=== PATIENT | female | born 1940 | race Caucasian/White ===

== ENCOUNTER 2018-10-18 23:35 | Inpatient (IN) | payer MEDICARE, BC ==
[2018-10-18] MEDS ORDERED: NORVASC5 MG PO (23:42)
[2018-10-18] MEDS ORDERED: CYMBALTA20 MG PO (23:43)
[2018-10-18] MEDS ORDERED: BAYER CHEWABLE81 MG PO (23:43)
[2018-10-18] MEDS ORDERED: LASIX40 MG PO (23:43)
[2018-10-18] MEDS ORDERED: GABAPENTIN100 MG PO (23:43)
[2018-10-18] MEDS ORDERED: COZAAR100 MG PO (23:44)
[2018-10-18] MEDS ORDERED: MIRAPEX0.5 MG PO (23:44)
[2018-10-18] MEDS ORDERED: LEVOXYL50 MCG PO (23:44)
[2018-10-18] MEDS ORDERED: LOPRESSOR25 MG PO (23:44)
[2018-10-18] MEDS ORDERED: OMEPRAZOLE20 M1 PO (23:45)
[2018-10-18] MEDS ORDERED: ZOCOR10 MG PO (23:45)
[2018-10-18] MEDS ORDERED: K-DUR20 MEQ PO (23:45)
[2018-10-19 02:54] VITALS: BP 167/63; BMI 32.0
[2018-10-19 04:00] VITALS: BP 138/62
--- NOTE | 2018-10-19 08:17 | NUR ---
PT RESTING IN BED. DENIES ANY NEEDS. NO OUTPUT FROM NG NOTED. DAUGHTERS AT BEDSIDE. NO S/S OF ACUTE DISTRESS. CL IN PLACE.
[2018-10-19 09:01] VITALS: BP 134/36
--- NOTE | 2018-10-19 12:23 | MORECARE ---
CASE MANAGEMENT DISCHARGE SUMMARY PATIENT: TONY RICHEY UNIT: [id number] ADM DATE: 10/19/18 AGE: 78 : 42 SEX: F ROOM/BED: D.2233 AUTHOR: CARLOS DOMINGUEZ PHYSICIAN: REFERRING PHYSICIAN: JHOANA BRISCOE MD DATE OF SERVICE: 10/19/18 Discharge Plan Patient Name: TONY RICHEY Facility: [facility]:[place] : 1940 Planned Disposition: Home Hlth Svc w Plan Readm Anticipated Discharge Date: Discharge Date: Expected LOS: Initial Reviewer: [email or web address] Initial Review Date: 10/19/2018 Generated: 10/19/18 1:22 pm Comments DCP- Discharge Planning Updated by [email or web address]: Jadyn Jiménez on 10/19/18 11:[address] Patient Name: TONY RICHEY Admission Status: ER Accout number: [id number] Admission Date: 10-19-2018 : 1940 Admission Diagnosis: Attending: JHOANA BRISCOE Current LOS: 1 Anticipated DC Date: Planned Disposition: Home Hlth Svc w Plan Readm Primary Insurance: MEDICARE A & B Discharge Planning Comments: CM met with patient to complete initial dc planning assessment. CM educated patient on the CM role and verbal consent given by patient to complete assessment. Patient lives at home with her daughter (Jorge) and her family. At discharge patient plans to return and feels this is a safe discharge. CM discussed availability of home health, rehab services, and medical equipment. States she is current with [facility], they are giving her PT for her knees. 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 States she would like them resumed on discharge. I called [facility] and informed them of her admission and they will resume care on discharge. CM will continue to follow and will assist as needed with dc plans/needs. Jony - Approver: Jadyn Jiménez DCPIA - Discharge Planning Initial Assessment Updated by [id number]: Jadyn Jiménez on 10/19/18 12:16 pm * Is the patient Alert and Oriented? Yes * How many steps to enter\exit or inside your home? 0/0 * PCP Dr. Mary Kate Rodriguez in [facility] * Pharmacy [facility] in [facility] * Preadmission Environment Home with Family * ADLs Independent * Equipment Bedside Commode Cane Shower Chair Walker * List name and contact numbers for known caregivers / representatives who currently or will assist patient after discharge: Jorge Aguilera - DTR - [phone] Starla Richey - [facility] - [phone] * Verbal permission to speak to the caregivers and representatives has been obtained from the patient. Yes * Community resources currently utilized Home Health * Please name any agencies selected above. [facility] * Additional services required to return to the preadmission environment? No * Can the patient safely return to the preadmission environment? Yes * Has this patient been hospitalized within the prior 30 days at any hospital? No Patient Name: TONY RICHEY Page [phone] at 1223 All edits/amendments must be made on the electronic document DICTATION DATE: 10/19/18 122 BOTTLING ROOM WORKER: DANIEL 10/19/18 1222 RPT#: [id number] DC DATE: STATUS: ADM IN [facility] [address] [place] [address] END OF REPORT
[2018-10-19 13:07] VITALS: BP 110/32
[2018-10-19 14:42] VITALS: BMI 31.9
[2018-10-19 17:23] VITALS: BP 159/45
--- NOTE | 2018-10-19 18:50 | NUR ---
PT RESTING IN BED. WRAPPED ARM SO PT CAN USE THE SHOWER. PROPERTY INVESTOR PAUSED. NO S/S OF ACUTE DISTRESS. CL IN PLACE.
--- NOTE | 2018-10-19 18:51 | NUR ---
PT RESTING IN BED. CHEST RISING AND FALLING. NG TO L NARE TO CHARLIE. SISTER AT BEDSIDE. NO S/S OF ACUTE DISTRESS. CL IN PLACE.
[2018-10-19 20:00] VITALS: BP 136/48
--- NOTE | 2018-10-19 23:00 | NUR ---
PT REPORTS MILD PAIN. INFORMED PT OF LOW BP THAT MAY DROP IF SHE RECIEVES PRN PAIN MED. PT VERBALIZED UNDERSTANDING. INFORMED IF PAIN INCREASES TO NOTIFY, BUT IF BP COMES BACK UP BY NEXT VITALS, SHE MAY RECIEVE PRN PAIN MEDICATION.
[2018-10-20] VITALS: BP 153/69
--- NOTE | 2018-10-20 03:23 | NUR ---
I have reviewed this patient and I concur with the Shift Assessment completed by the Licensed Practical Nurse today this shift.
[2018-10-20 04:00] VITALS: BP 164/55
[2018-10-20 07:13] LABS: BASOPHILS 0.1 % (0-2); EOSINOPHILS 0.1 % (0-7); HEMATOCRIT 32.3 % (36.0-48.0); HEMOGLOBIN 9.6 g/dL (12-16); IMMATURE GRANULOCYTES 0.3 % (0-5); MCH 23.5 pg (26.0-34.0); MCHC 29.7 g/dL (31.0-37.0); MEAN PLATELET VOLUME 10.2 fL (7.4-10.4); MONOCYTES 8.9 % (2-11); NEUTROPHILS 78.6 % (40-80); PLATELET COUNT 265 10x3/uL (130-400); RBC 4.09 10x6/uL (4.00-5.40); RDW 16.3 % (11.5-14.5); WBC 7.5 10x3/uL (4.8-10.8)
[2018-10-20 07:32] LABS: ALBUMIN 2.4 g/dL (3.4-5.0); ANION GAP 13.1 mmol/L (8-16); BILIRUBIN - TOTAL 0.41 mg/dL (0.2-1.3); CALCIUM 8.1 mg/dL (8.5-10.1); CARBON DIOXIDE 26.1 mmol/L (21.0-32.0); CREATININE - SERUM 0.9 mg/dL (0.6-1.3); POTASSIUM - SERUM 4.2 mmol/L (3.5-5.1); PROTEIN - SERUM 5.7 g/dL (6.4-8.2)
--- NOTE | 2018-10-20 08:16 | NUR ---
PATIENT RESTING WITH NO DISTRESS, DAUGHTER AT BEDSIDE. NG TO LOW INT SUCTION. CL IN REACH
[2018-10-20 08:42] VITALS: BP 161/45
[2018-10-20 14:31] VITALS: BP 133/115
[2018-10-20 16:46] VITALS: BP 150/42
--- NOTE | 2018-10-20 19:40 | NUR ---
LYING IN BED. ALERT AND ORIENTED X4. DENIES PAIN. NGT NOTED TO RT NARE TO LIS WITH LIGHT YELLOW FLUID IN TUBING. RESP EVEN AND NONLABORED. ABD DISTENDED BUT SOFT. BS PRESENT. SCDS IN USE BILAT. 2+ EDEMA NOTED TO BLE. NS WITH 20 MEQ KCL @ 100 ML/HR INFUSING IN RT HAND WITHOUT DIFF. DENIES NAUSEA. SR ELEVATED X2. CL IN REACH. FAMILY AT BEDSIDE.
[2018-10-20 20:00] VITALS: BP 169/53
--- NOTE | 2018-10-20 23:00 | NUR ---
IV LEAKING IN RT HAND. IV CATH REMOVED. 22G INSERTED IN RT FOREARM AFTER ATTEMPT X2. PT NIKOLAI WELL.
[2018-10-21] VITALS (7 sets, daily range): BP systolic 122–167; BP diastolic 51–82
--- NOTE | 2018-10-21 05:52 | NUR ---
MEDICATED WITH MORPHINE FOR C/O ABD PAIN RATING 4 ON PAIN SCALE. CL IN REACH.
--- NOTE | 2018-10-21 08:42 | NUR ---
PT RESTING IN BED. NG TO LIS BROWN DRAINAGE NOTED IN CANISTER. SISTER AT BEDSIDE. DENIES ANY NEEDS. NO S/S OF ACUTE DISTRESS. CL IN PLACE.
--- NOTE | 2018-10-21 14:52 | NUR ---
PT REPORTS 1 SMALL BM WITH SMALL AMOUTN BRIGHT RED BLOOD NOTED. CO "NG TUBE SLIPPING AND I AM WORRIED IT IS OUT OF PLACE." MIGUELITO ROBLESN REPOSITIONED AND RETAPPED. NO S/S OF ACUTE DISTRESS. CL IN PLACE.
--- NOTE | 2018-10-21 18:24 | NUR ---
PT RESTING IN BED. NG TUBE TO LIS DRAINING DARK BROWN. SISTER AT BEDSIDE. REMOVED SCDS PER PT REQUEST. DENIES PAIN. PASSING GAS. NO S/S OF ACUTE DISTRESS. CL IN PLACE.
--- NOTE | 2018-10-21 19:20 | NUR ---
LYING IN BED. ALERT AND ORIENTED X4. RESP EVEN AND NONLABORED. ABD DISTENDED AND SOFT. BS PRESENT X4 QUADS. PASSING FLATUS. NGT TO RT NARE TO LIS WITH BROWNISH DRAINAGE IN CANISTER. SCDS IN USE. NS WITH 20 MEQ KCL INFUSING AT 100 ML/HR IN RT FOREARM WITHOUT DIFF. 2+ EDEMA NOTED TO BLE. DENIES PAIN. SISTER AT BEDSIDE. SR ELEVATED X2. CL IN REACH.
[2018-10-22] VITALS: BP 138/60
[2018-10-22 04:00] VITALS: BP 164/52
[2018-10-22 06:29] LABS: BASOPHILS 0.1 % (0-2); EOSINOPHILS 0.6 % (0-7); HEMATOCRIT 34.3 % (36.0-48.0); HEMOGLOBIN 10.3 g/dL (12-16); IMMATURE GRANULOCYTES 0.3 % (0-5); LYMPHOCYTES 15.9 % (15-50); MCH 23.9 pg (26.0-34.0); MCV 79.6 fL (80.0-100.0); MEAN PLATELET VOLUME 10.1 fL (7.4-10.4); MONOCYTES 9.6 % (2-11); NEUTROPHILS 73.5 % (40-80); RBC 4.31 10x6/uL (4.00-5.40); RDW 16.3 % (11.5-14.5); WBC 6.7 10x3/uL (4.8-10.8)
[2018-10-22 06:39] LABS: CALC OSMOLALITY 289 mosm/kg (275-300); CALCIUM 8.6 mg/dL (8.5-10.1); CARBON DIOXIDE 22.3 mmol/L (21.0-32.0); CHLORIDE - SERUM 110 mmol/L (98-107); CREATININE - SERUM 0.7 mg/dL (0.6-1.3); POTASSIUM - SERUM 4.2 mmol/L (3.5-5.1); SODIUM 145 mmol/L (136-145); UREA NITROGEN 20 mg/dL (7-18); eGFR NON AFRICAN AMERICAN 86 mL/min (90-120)
[2018-10-22 06:40] LABS: PLATELET COUNT 322 10x3/uL (130-400)
[2018-10-22 06:43] LABS: GLUCOSE 69 mg/dL (74-106)
--- NOTE | 2018-10-22 10:36 | NUR ---
MORNING ASSESSMENT COMPLETE. SEE ASSESSMENET FLOWSHEET FOR FURHTER DETIALS. PT LYING IN BED AAO X4 TO PERSON, PLACE, TIME, AND SITUATION. DENEIS NEEDS AT THSI TIME. CL IN REACH. SIDE RAILS UP X3 FOR PT SAFETY. BED IN LOWEST POSITION.
--- NOTE | 2018-10-22 13:22 | NUR ---
NUTRITION F/U CHART REVIEWED. DIET ADVANCED TO CLEAR LIQUIDS. WILL CONTINUE TO MONITOR DIET ADVANCEMENT, PO INTAKE. RD FOLLOWING
[2018-10-22 14:01] VITALS: BP 135/51
[2018-10-22 18:29] VITALS: BP 169/54
[2018-10-22 20:00] VITALS: BP 168/47
[2018-10-23] VITALS: BP 134/46
[2018-10-23 04:00] VITALS: BP 151/47
--- NOTE | 2018-10-23 04:07 | NUR ---
PT ALERT AND ORIENTED. NO SIGNS OF DIDSTRESS. BREATHING EVEN AND UNLABORED. PT STATES NO PROBLEMS AT THIS TIME. NO N/V ALL NIGHT. AND HEADACHE IS GONE. WILL CONTINUE PLAN OF CARE.
--- NOTE | 2018-10-23 04:08 | NUR ---
I have reviewed this patient and I concur with the Shift Assessment completed by the Licensed Practical Nurse today this shift.
[2018-10-23 05:18] LABS: BASOPHILS 0.2 % (0-2); EOSINOPHILS 0.8 % (0-7); HEMATOCRIT 28.5 % (36.0-48.0); HEMOGLOBIN 8.6 g/dL (12-16); IMMATURE GRANULOCYTES 0.3 % (0-5); LYMPHOCYTES 13.9 % (15-50); MCH 23.9 pg (26.0-34.0); MCHC 30.2 g/dL (31.0-37.0); MCV 79.2 fL (80.0-100.0); MEAN PLATELET VOLUME 9.6 fL (7.4-10.4); MONOCYTES 11.5 % (2-11); NEUTROPHILS 73.3 % (40-80); RDW 16.4 % (11.5-14.5); WBC 6.2 10x3/uL (4.8-10.8)
[2018-10-23 05:33] LABS: CALC OSMOLALITY 291 mosm/kg (275-300); CARBON DIOXIDE 26.1 mmol/L (21.0-32.0); CHLORIDE - SERUM 114 mmol/L (98-107); CREATININE - SERUM 0.7 mg/dL (0.6-1.3); GLUCOSE 89 mg/dL (74-106); POTASSIUM - SERUM 3.9 mmol/L (3.5-5.1); SODIUM 147 mmol/L (136-145); UREA NITROGEN 16 mg/dL (7-18); eGFR NON AFRICAN AMERICAN 86 mL/min (90-120)
[2018-10-23 05:50] LABS: PLATELET COUNT 239 10x3/uL (130-400)
[2018-10-23 08:45] VITALS: BP 159/53
--- NOTE | 2018-10-23 10:15 | NUR ---
PATIENT IN BED WITH NO COMPLAINTS. IV INTACT. NGT REMOVED BY DR. BRISCOE. PATIENT STATED NO PAIN. FAMILY AT BEDSIDE. CALL LIGHT WITHIN REACH.
--- NOTE | 2018-10-23 13:00 | NUR ---
PATIENT IN BED TOLERATED FULL LIQUID DIETS AT THIS TIME. NO COMPLAINTS OF N/V. IV INTACT. FAMILY AT BEDSIDE. CALL LIGHT WITHIN REACH.
[2018-10-23 14:30] VITALS: BP 124/64
--- NOTE | 2018-10-23 15:45 | NUR ---
IVF DC'D PER ORDER. PATIENT HAS NO COMPLAINTS AT THIS TIME. IV INTACT. CALL LIGHT WITHIN REACH.
[2018-10-23 16:47] VITALS: BP 145/55
--- NOTE | 2018-10-23 19:30 | NUR ---
PT SITTING UP IN BEDSIDE CHAIR, WITHOUT DISTRESS. ALERT AND ORIENTED, FAMILY AT BEDSIDE. DENIES PAIN OR N/V. STATES SHE HAS BEEN PASSING GAS. BOWEL SOUNDS ACTIVE X4. DENIES NEEDS AT THIS TIME. CL IN REACH, WILL CTM
[2018-10-23 20:00] VITALS: BP 169/58
--- NOTE | 2018-10-23 21:00 | NUR ---
PT SITTING UP IN BEDSIDE CHAIR, EATING CHEETOS AND SIPPING ON SPRITE. SAYS SHE HAS NOT HAD ANY NAUSEA AND IS TOLERATING BOTH WELL. DENIES NEEDS. CL IN REACH, WILL CTM
[2018-10-24] VITALS: BP 156/62
--- NOTE | 2018-10-24 04:00 | NUR ---
RESTING QUIETLY, WITHOUT NEEDS. WILL CTM
[2018-10-24 06:42] LABS: BASOPHILS 0.2 % (0-2); EOSINOPHILS 2.1 % (0-7); HEMATOCRIT 30.4 % (36.0-48.0); IMMATURE GRANULOCYTES 0.6 % (0-5); LYMPHOCYTES 19.8 % (15-50); MCH 23.4 pg (26.0-34.0); MCHC 29.6 g/dL (31.0-37.0); MCV 79.2 fL (80.0-100.0); MEAN PLATELET VOLUME 9.8 fL (7.4-10.4); MONOCYTES 12.6 % (2-11); NEUTROPHILS 64.7 % (40-80); PLATELET COUNT 257 10x3/uL (130-400); RBC 3.84 10x6/uL (4.00-5.40); RDW 16.3 % (11.5-14.5); WBC 5.2 10x3/uL (4.8-10.8)
[2018-10-24 06:59] LABS: CALC OSMOLALITY 284 mosm/kg (275-300); CHLORIDE - SERUM 108 mmol/L (98-107); CREATININE - SERUM 0.7 mg/dL (0.6-1.3); GLUCOSE 85 mg/dL (74-106); POTASSIUM - SERUM 3.5 mmol/L (3.5-5.1); SODIUM 144 mmol/L (136-145); eGFR NON AFRICAN AMERICAN 86 mL/min (90-120)
[2018-10-24 07:00] LABS: UREA NITROGEN 10 mg/dL (7-18)
--- NOTE | 2018-10-24 08:35 | NUR ---
PT RESTING IN BED. DENIES PAIN. NO S/S OF ACUTE DISTRESS. SISTER AT BEDSIDE. CL IN PLACE.
[2018-10-24 08:39] VITALS: BP 165/53
--- NOTE | 2018-10-24 10:05 | MORECARE ---
CASE MANAGEMENT DISCHARGE SUMMARY PATIENT: TONY RICHEY UNIT: [id number] ADM DATE: 10/19/18 AGE: 78 : 42 SEX: F ROOM/BED: D.2233 AUTHOR: CARLOS DOMINGUEZ PHYSICIAN: REFERRING PHYSICIAN: JHOANA BRISCOE MD DATE OF SERVICE: 10/24/18 Discharge Plan Patient Name: TONY IRCHEY Facility: [facility]:[place] : 1940 Planned Disposition: Home Hlth Svc w Plan Readm Anticipated Discharge Date: Discharge Date: Expected LOS: Initial Reviewer: [email or web address] Initial Review Date: 10/19/2018 Generated: 10/24/18 11:05 am Comments DCP- Discharge Planning Updated by [email or web address]: Jadyn Jiménez on 10/24/18 9:[address] Patient Name: TONY RICHEY Encounter No: [id number] : 1940 Primary Insurance: MEDICARE A & B Anticipated DC Date: Planned Disposition: Home Hlth Svc w Plan Readm External Planned Provider: : DCP follow-up note: Patient and family in agreement with discharge plan. No changes to plan. She is sitting in chair eating a regular diet. Her family is in the room to transport her home. I called [facility] and spoke to Aixa, they will resume her HHS, clinical faxed. Case management will follow and assist as needed. Jadyn Jiménez DCP- Discharge Planning Updated by [email or web address]: Jadyn Jiménez on 10/19/18 11:[address] Patient Name: TONY RICHEY Admission Status: ER Accout number: [id number] Admission Date: 10-19-2018 : 1940 Admission Diagnosis: Attending: JHOANA BRISCOE Current LOS: 1 Anticipated DC Date: Planned Disposition: Home Hlth Svc w Plan Readm Primary Insurance: MEDICARE A & B Discharge Planning Comments: CM met with patient to complete initial dc planning assessment. CM educated patient on the CM role and verbal consent given by patient to complete assessment. Patient lives at home with her daughter (Jorge) and her family. At discharge patient plans to return and feels this is a safe discharge. CM discussed availability of home health, rehab services, and medical equipment. States she is current with [facility], they are giving her PT for her knees. 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 States she would like them resumed on discharge. I called [facility] and informed them of her admission and they will resume care on discharge. CM will continue to follow and will assist as needed with dc plans/needs. Jony - Manager Spanish: Jadyn Jiménez DCPIA - Discharge Planning Initial Assessment Updated by [id number]: Jadyn Jiménez on 10/19/18 12:16 pm * Is the patient Alert and Oriented? Yes * How many steps to enter\exit or inside your home? 0/0 * PCP Dr. Mary Kate Rodriguez in [facility] * Pharmacy [facility] in [facility] * Preadmission Environment Home with Family * ADLs Independent * Equipment Bedside Commode Cane Shower Chair Walker * List name and contact numbers for known caregivers / representatives who currently or will assist patient after discharge: Jorge Aguilera - DTR - [phone] Starla Richey [facility] - [phone] * Verbal permission to speak to the caregivers and representatives has been obtained from the patient. Yes * Community resources currently utilized Home Health * [facility] * Additional services required to return to the preadmission environment? No * Can the patient safely return to the preadmission environment? Yes * Has this patient been hospitalized within the prior 30 days at any hospital? No External Providers [facility] Next Contact Date: Service Request Date: Service Type: Resolution: Reviewer: Comments: Coverage Notice Reviewer: [email or web address] Jiménez Notice Issued Date-Time: 10/24/2018 9:47 Notice Type: IM Discharge Notice Notice Delivered To: Patient Relationship to Patient: Self English Professor Name: Delivery Method: HAND - Hand Delivered Che Days: Prior Verbal Notification: Recipient Understood Notice: Yes Recipient Signature: Yes Med Rec Note Co-signed by Attending: Coverage Notice Comment: IMM explained, signed, given, copy placed in MR Reviewer: [id number] Jiménez Notice Issued Date-Time: 10/19/2018 12:05 Notice Type: Patient Choice Letter Notice Delivered To: Patient Relationship to Patient: English Professor Name: Delivery Method: HAND - Hand Delivered Che Days: Prior Verbal Notification: Recipient Understood Notice: Yes Recipient Signature: Yes Med Rec Note Co-signed by Attending: Coverage Notice Comment: ZULEMA for [facility] Last DP export: 10/19/18 11:23 a Patient Name: TONY RICHEY Page 14703 at 1005 All edits/amendments must be made on the electronic document DICTATION DATE: 10/24/18 1005 CLIENT SUPPORT PROFESSIONAL: DANIEL 10/24/18 1005 RPT#: [id number] DC DATE: STATUS: ADM IN [facility] [address] [place] [address] END OF REPORT
--- NOTE | 2018-10-24 12:16 | NUR ---
DC INSTRUCTIONS AND EDUCATION DONE. DC IV WITH TIP IN TACT. NO S/S OF ACUTE DISTRESS. ALL BELONGINGS TAKEN DOWN BY DAUGHTER. PT TAKEN DOWN TO LOBBY VIA WC. SISTER AT BEDSIDE.
--- NOTE | 2018-10-30 09:44 | MORECARE ---
CASE MANAGEMENT DISCHARGE SUMMARY PATIENT: TONY RICHEY UNIT: [id number] ADM DATE: 10/19/18 AGE: 78 : 42 SEX: F ROOM/BED: D.2233 AUTHOR: CARLOS DOMINGUEZ PHYSICIAN: REFERRING PHYSICIAN: JHOANA BRISCOE MD DATE OF SERVICE: 10/30/18 Discharge Plan Patient Name: TONY RICHEY Facility: [facility]:[place] : 1940 Planned Disposition: Home Hlth Svc w Plan Readm Anticipated Discharge Date: Discharge Date: 10/24/2018 Expected LOS: 0 Initial Reviewer: [email or web address] Initial Review Date: 10/19/2018 Generated: 10/30/18 10:44 am Comments DCP- Discharge Planning Updated by [email or web address]: Jadyn Jiménez on 10/24/18 9:[address] Patient Name: TONY RICHEY Encounter No: [id number] : 1940 Primary Insurance: MEDICARE A & B Anticipated DC Date: Planned Disposition: Home Hlth Svc w Plan Readm External Planned Provider: : DCP follow-up note: Patient and family in agreement with discharge plan. No changes to plan. She is sitting in chair eating a regular diet. Her family is in the room to transport her home. I called [facility] and spoke to Aixa, they will resume her HHS, clinical faxed. Case management will follow and assist as needed. Jadyn Jiménez DCP- Discharge Planning Updated by [email or web address]: Jadyn Jiménez on 10/19/18 11:[address] Patient Name: TONY RICHEY Admission Status: ER Accout number: [id number] Admission Date: 10-19-2018 : 1940 Admission Diagnosis: Attending: JHOANA BRISCOE Current LOS: 1 Anticipated DC Date: Planned Disposition: Home Hlth Svc w Plan Readm Primary Insurance: MEDICARE A & B Discharge Planning Comments: CM met with patient to complete initial dc planning assessment. CM educated patient on the CM role and verbal consent given by patient to complete assessment. Patient lives at home with her daughter (Jorge) and her family. At discharge patient plans to return and feels this is a safe discharge. CM discussed availability of home health, rehab services, and medical equipment. States she is current with [facility], they are giving her PT for her knees. 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 States she would like them resumed on discharge. I called [facility] and informed them of her admission and they will resume care on discharge. CM will continue to follow and will assist as needed with dc plans/needs. [facility] - Floor Finisher: Jadyn Jiménez DCPIA - Discharge Planning Initial Assessment Updated by [email or web address]: Jadyn Jiménez on 10/19/18 12:16 pm * Is the patient Alert and Oriented? Yes * How many steps to enter\exit or inside your home? 0/0 * PCP Dr. Mary Kate Rodriguez in [facility] * Pharmacy [facility] in [facility] * Preadmission Environment Home with Family * ADLs Independent * Equipment Bedside Commode Cane Shower Chair Walker * List name and contact numbers for known caregivers / representatives who currently or will assist patient after discharge: Jorge Aguilera - DTR - [phone] Starla Richey - [facility] - [phone] * Verbal permission to speak to the caregivers and representatives has been obtained from the patient. Yes * Community resources currently utilized Home Health * Please name any agencies selected above. [facility] * Additional services required to return to the preadmission environment? No * Can the patient safely return to the preadmission environment? Yes * Has this patient been hospitalized within the prior 30 days at any hospital? No Coverage Notice Reviewer: [email or web address] Jose Armando Jiménez Notice Issued Date-Time: 10/24/2018 9:47 Notice Type: IM Discharge Notice Notice Delivered To: Patient Relationship to Patient: Self Manager Of Planning Name: Delivery Method: HAND - Hand Delivered Che Days: Prior Verbal Notification: Recipient Understood Notice: Yes Recipient Signature: Yes Med Rec Note Co-signed by Attending: Coverage Notice Comment: IMM explained, signed, given, copy placed in MR Reviewer: [id number] Jose Armando Jiménez Notice Issued Date-Time: 10/19/2018 12:05 Notice Type: Patient Choice Letter Notice Delivered To: Patient Relationship to Patient: Manager Of Planning Name: Delivery Method: HAND - Hand Delivered Che Days: Prior Verbal Notification: Recipient Understood Notice: Yes Recipient Signature: Yes Med Rec Note Co-signed by Attending: Coverage Notice Comment: ZULEMA for [facility] Last DP export: 10/24/18 9:05 am Patient Name: TONY RICHEY Page [phone] at 0944 All edits/amendments must be made on the electronic document DICTATION DATE: 10/30/18943 SECURITY VEHICLE PATROL OFFICER: DANIEL 10/30/18943 RPT#: [id number] DC DATE:10/24/18 STATUS: DIS IN [facility] [address] [place] [address] END OF REPORT
--- NOTE | 2018-11-15 09:03 | DS ---
PATIENT:TONY RICHEY :44 MEDICAL RECORD: [id number] DISCHARGE SUMMARY ADMISSION DATE: 10/19/18 DISCHARGE DATE: 10/24/18 ADMISSION DIAGNOSES: 1. Small-bowel obstruction. 2. Acute hypokalemia. 3. Hypertension. DISCHARGE DIAGNOSES: 1. Small-bowel obstruction. 2. Acute hypokalemia. 3. Hypertension. 4. Paraesophageal hernia. 5. Lower gastrointestinal bleed. CONSULTATIONS: None. REPORT OF HOSPITALIZATION: The patient was admitted to the hospital through the ER with CT findings of a small-bowel obstruction. She had a history of a total abdominal hysterectomy in the past. The patient had an NG tube in place. Her potassium was noted to be low on admission and this was replaced during the patient's workup with CT scan, it was noted that she had a very large hiatal hernia. This appeared to be a large paraesophageal hernia. She had not known about this being present and never had any workup for it. Also, during her hospitalization, she began having dark discoloration to her stool once she began having bowel function. Guaiac came back positive for blood. There was concern this may be evidence of some sort a lower GI bleed, but this resolved very quickly. She never had a colonoscopy before done at any time, we recommended having one done soon after discharge and she stated that she would like to schedule this as an outpatient, closer to her home town. At the day of discharge, she was tolerating a diet. Her NG tube was out. She was having normal bowel function and had no abdominal pain. Her electrolytes have normalized. She was felt to be stable for discharge home. DISCHARGE INSTRUCTIONS: Return to clinic or call with any questions or concerns, fevers, chills, nausea, vomiting, or worsening abdominal pain. ACTIVITY: As tolerated. FOLLOWUP: 1. As needed, but we will arrange an outpatient EGD with esophageal manometry to assess the patient's large paraesophageal hernia. 2. The patient will contact her PCP to arrange colonoscopy JODIE. TRANSINT:[id number] Voice Confirmation ID: [id number] DOCUMENT ID: [id number] DISCHARGE SUMMARY REPORT [id number] KAIDENZARINAJHOANA WALSH MD at 0903 CC: [id number] DICTATION DATE: 11/08/18810 SUPERVISOR BUFFING AND PASTING: 11/08/18 0936 DIS IN 10/24/18 [facility] [address] [place] [address]
== END 2018-10-24 12:53 | disposition home health service (06) | DRG 389 ==
LOC: D.ER 23:35 → D.MS 10-19 00:26
PROVIDERS: Emergency Medicine; ADMIT Surgery; ATTEND Surgery
PROC: 0D9670Z Drainage of Stomach with Drainage Device, Via Natural or Artificial Opening (ICD-10-PCS; principal; 2018-10-19)
DX: K56.609 Unspecified intestinal obstruction, unspecified as to partial versus complete obstruction (principal); K92.2 Gastrointestinal hemorrhage, unspecified; G62.9 Polyneuropathy, unspecified; I11.0 Hypertensive heart disease with heart failure; I50.9 Heart failure, unspecified; E87.6 Hypokalemia; K44.9 Diaphragmatic hernia without obstruction or gangrene

== ENCOUNTER 2018-11-15 07:44 | Day surgery (SDC) | payer MEDICARE, BC ==
[~2018-11-15] VITALS: Ht 177.8 cm; Wt 80.5 kg
--- NOTE | ~2018-11-15 | OP ---
PATIENT NAME: TONY RICHEY MEDICAL RECORD: [id number] :44 LOCATION:D.OPS ADMISSION DATE: SURGEON: EVAN BRISCOE MD DATE OF OPERATION: 11/15/2018 PREOPERATIVE DIAGNOSES: 1. Hiatal hernia. 2. Hypertension. POSTOPERATIVE DIAGNOSES: 1. Hiatal hernia. 2. Hypertension. PROCEDURE: 1. EGD with biopsy. 2. Manometry catheter placement. SURGEON: Evan Briscoe MD REPORT OF PROCEDURE: The Olympus endoscope was advanced through the patient's mouth and esophagus. We passed through the GE junction, which was at 33 cm from the teeth and entered a large hiatal hernia. We could see the diaphragm pinching down the mid portion of the patient's stomach. The hernia defect was approximately 8 cm in length. As we came down through this, we were able to pass through the pylorus into the small bowel. The small bowel appeared to be normal with no signs of any inflammation, ulcerations or masses. We passed the scope back into the stomach through the pylorus and took a biopsy of the antrum and sent this off for permanent specimen. Retroflexed views could show the large hiatal hernia, but no other masses, lesions or ulcerations throughout the stomach. As we pulled the scope back, we see this is more of a paraesophageal hernia as the stomach appeared to be about [facility] up into the chest. The scope was pulled back into the esophagus and the GE junction was inspected and there were no signs of any ulcerations or inflammation. A biopsy was taken at the lower third of the esophagus near the GE junction and sent off for permanent specimen. At this point, the scope was removed. We then placed the manometry catheter down through the right naris and it easily passed down into the esophagus. We then replaced the endoscope and could see that the manometry catheter was passing through the GE junction into the stomach and the hiatal hernia. At this point, the scope was removed and the catheter was left in place. COMPLICATIONS: None. CONDITION: Stable. ANESTHESIA: TIVA. BLOOD LOSS: Minimal. TRANSINT:[id number] Voice Confirmation ID: [id number] DOCUMENT ID: [id number] OPERATIVE REPORT [id number] KVNGTONY DAVIS EVNA BRISCOE MD CC: [id number] DICTATION DATE: 11/15/18 112 CIVIL STRUCTURAL ENGINEER: 11/15/18 1136 [facility] [address] [facility] [place] [address]
[~2018-11-15 07:44] MED LIST: BAYER CHEWABLE81 MG PO; COZAAR100 MG PO; CYMBALTA20 MG PO; GABAPENTIN100 MG PO; K-DUR20 MEQ PO; LASIX40 MG PO; LEVOXYL50 MCG PO; LOPRESSOR25 MG PO; MIRAPEX0.5 MG PO; NORVASC5 MG PO; OMEPRAZOLE20 M1 PO; ZOCOR10 MG PO
[2018-11-15 08:10] LABS: BASOPHILS 0.2 % (0-2); EOSINOPHILS 1.1 % (0-7); HEMATOCRIT 32.5 % (36.0-48.0); HEMOGLOBIN 9.9 g/dL (12-16); IMMATURE GRANULOCYTES 0.2 % (0-5); MCH 23.7 pg (26.0-34.0); MCHC 30.5 g/dL (31.0-37.0); MCV 77.9 fL (80.0-100.0); MEAN PLATELET VOLUME 8.8 fL (7.4-10.4); MONOCYTES 12.7 % (2-11); NEUTROPHILS 61.8 % (40-80); PLATELET COUNT 235 10x3/uL (130-400); RBC 4.17 10x6/uL (4.00-5.40); RDW 15.9 % (11.5-14.5); WBC 4.6 10x3/uL (4.8-10.8)
[2018-11-15 08:15] LABS: ANION GAP 11.5 mmol/L (8-16); CALCIUM 9.2 mg/dL (8.5-10.1); CARBON DIOXIDE 28.4 mmol/L (21.0-32.0); CREATININE - SERUM 0.9 mg/dL (0.6-1.3); POTASSIUM - SERUM 3.9 mmol/L (3.5-5.1)
[2018-11-15 10:11] VITALS: BP 158/52; Ht 177.8 cm; Wt 80.5 kg
--- NOTE | 2018-11-15 12:02 | NUR ---
[id number] ESOPHAGEAL MANOMETRY TEST.
--- NOTE | 2018-11-15 12:40 | NUR ---
DISCHARGE INSTRUCTIONS REVIEWED WITH PATIENT AND FAMILY. RIGHT HAND PIV DC'D WITH TIP INTACT. PATIENT DRESSING IN PERSONAL CLOTHING
--- NOTE | 2018-11-15 12:58 | NUR ---
DISCHARGED HOME VIA WHEELCHAIR TO PRIVATE VEHICLE WITH FAMILY
== END 2018-11-15 12:58 | disposition home or self-care (01) ==
LOC: D.OPS 07:44
PROVIDERS: ATTEND Surgery
DX: K44.9 Diaphragmatic hernia without obstruction or gangrene (principal); I10 Essential (primary) hypertension; Z01.812 Encounter for preprocedural laboratory examination

== ENCOUNTER 2018-12-06 05:48 | Day surgery (SDC) | payer MEDICARE, BC ==
[~2018-12-06] VITALS: Ht 175.3 cm; Wt 95.3 kg
[2018-12-06] VITALS (11 sets, daily range): BP systolic 134–164; BP diastolic 53–65; BMI 31.0
[2018-12-06 06:17] LABS: BASOPHILS 0.2 % (0-2); EOSINOPHILS 0.6 % (0-7); HEMATOCRIT 33.5 % (36.0-48.0); HEMOGLOBIN 10.3 g/dL (12-16); IMMATURE GRANULOCYTES 0.2 % (0-5); LYMPHOCYTES 19.7 % (15-50); MCH 23.8 pg (26.0-34.0); MCHC 30.7 g/dL (31.0-37.0); MCV 77.4 fL (80.0-100.0); MONOCYTES 11.3 % (2-11); RBC 4.33 10x6/uL (4.00-5.40); RDW 15.7 % (11.5-14.5); WBC 5.3 10x3/uL (4.8-10.8)
[2018-12-06 06:36] LABS: PLATELET COUNT 285 10x3/uL (130-400)
[2018-12-06 06:42] LABS: ANION GAP 13.2 mmol/L (8-16); CALCIUM 9.1 mg/dL (8.5-10.1); CREATININE - SERUM 0.8 mg/dL (0.6-1.3); POTASSIUM - SERUM 4.2 mmol/L (3.5-5.1)
--- NOTE | 2018-12-06 10:54 | NUR ---
ATTEMPTED TO CALL WAITING ROOM TO REACH PTS FAMILY. UNABLE. WILL CHECK [address].
--- NOTE | 2018-12-06 11:08 | NUR ---
PT TRANSPORTED TO ROOM FROM RECOVERY VIA STRETCHER. PT IS AAO X 4. PT REPORTS PAIN TO LEFT NECK/SHOULDER AREA. WILL ADDRESS SEE EMAR. PT IS UNABLE TO ANSWER HISTORICAL/SUICIDAL QUESTIONS AT THIS TIME DUE TO PAIN/FREQUEST EPISODES OF RESTING. PT IS AROUSABLE WITH VERBAL STIMULATION. WILL ATTEMPT TO COMPLETE HISTORY AND SUICIDE SCREEN AT A LATER TIME. LAP SITES X 6 TO ABDOMEN NOTED WITH BANDAIDS C/D/I. PT DENIES PRESENCE OF N/V AT THIS TIME. BED IS IN THE LOWEST POSITION. CALL LIGHT AND BEDSIDE TABLE ARE WITHIN REACH. SIDE RAILS X 2. WILL CONT TO MONITOR.
--- NOTE | 2018-12-06 14:47 | NUR ---
PT SISTER IS HISTORIAN AND ANSWERS QUESTIONS APPROPRIATELY. PT IS AROUSEABLE WITH VERBAL STIMULATION BUT FREQUENTLY RETURNS TO RESTING STATE WITH VERBAL AROUSAL NEEDED. UNABLE TO COMPLETE SUICIDE ASSESSMENT AT THIS TIME. WILL CONT TO ATTEMPT TO COMPLETE.
--- NOTE | 2018-12-06 19:30 | NUR ---
PT RESTING WITH EYES CLOSED AND UNLABORED RESPIRATIONS WHEN ENTERING THE ROOM. AROUSES TO NAME CALLED. SISTER AT BEDSIDE. PATIENT STATES SHE HAS PAIN IN THE ABDOMEN AND IN THE LEFT SIDE OF HER NECK AND REQUESTS A WARM PACK WHEN AVAILABLE. PT HAS 5 LAP SITES TO THE ABDOMEN THAT ARE COVERED WITH BANDAIDS WITH SCANT AMOUNT OF DRIED BLOOD. PATIENT HAS RETAIL EVENT COORDINATOR FOR PAIN CONTROL AND USES CORRECTLY AND EFFECTIVELY. PATENT IV TO THE RIGHT WRIST AND INFUSING NS @ 125. GETS UP TO THE BATHROOM WITH ASSISTANCE OF STAFF. HAS CALL LIGHT IN REACH OF BOTH PATIENT AND SISTER AND VERBALIZE UNDERSTANDING TO USE WHEN IN NEED. REVEIWED NPO STATUS WITH PATIENT AND SISTER. BOTH VERBALIZE UNDERSTANDING. BED LOCKED AND LOWERED. DENIES FURTHER NEEDS AT THIS TIME. CPOC.
[2018-12-07] VITALS: BP 166/60
--- NOTE | 2018-12-07 03:28 | NUR ---
I have reviewed this patient and I concur with the Shift Assessment completed by the Licensed Practical Nurse today this shift.
[2018-12-07 04:00] VITALS: BP 154/57
[2018-12-07 04:22] LABS: BASOPHILS 0.3 % (0-2); EOSINOPHILS 0.3 % (0-7); HEMATOCRIT 29.6 % (36.0-48.0); HEMOGLOBIN 8.9 g/dL (12-16); IMMATURE GRANULOCYTES 0.3 % (0-5); LYMPHOCYTES 22.9 % (15-50); MCH 23.6 pg (26.0-34.0); MCHC 30.1 g/dL (31.0-37.0); MCV 78.5 fL (80.0-100.0); MEAN PLATELET VOLUME 9.2 fL (7.4-10.4); MONOCYTES 12.5 % (2-11); NEUTROPHILS 63.7 % (40-80); PLATELET COUNT 260 10x3/uL (130-400); RBC 3.77 10x6/uL (4.00-5.40); RDW 15.7 % (11.5-14.5)
[2018-12-07 04:24] LABS: WBC 3.9 10x3/uL (4.8-10.8)
[2018-12-07 04:38] LABS: ANION GAP 11.3 mmol/L (8-16); CALCIUM 8.1 mg/dL (8.5-10.1); CARBON DIOXIDE 26.8 mmol/L (21.0-32.0); CREATININE - SERUM 0.8 mg/dL (0.6-1.3); POTASSIUM - SERUM 4.1 mmol/L (3.5-5.1)
--- NOTE | 2018-12-07 07:51 | NUR ---
REPORT RECEIEVED. WILL CONTINUE WITH POC. PT CURRENTLY LYING SEMI FOWLERS. CALL LIGHT W/I REACH. PT IS AAO AND UP WITH ASSIST. RR EVEN AND UNLABORED ON 2L . NS INFUSING @125ML/HR AND DILUADID SOFTWARE APPLICATION TESTER SET TO 0.2/02/22 VIA R.WRIST PIV. PT DENIES ANY NEEDS AT THIS TIME. NO S/S OF DISTRESS NOTED. WILL CTM.
[2018-12-07 08:20] VITALS: BP 156/54
--- NOTE | 2018-12-07 10:00 | NUR ---
HOSPITAL ACCOUNT MANAGER AND NS DC. HOSPITAL ACCOUNT MANAGER DILUADID WASTED. AM MEDICATIONS ADMINISTERED. PT DENIES ANY NEEDS OR PAIN AT THIS TIME. FAMILY AT BEDSIDE. WILL CTM.
[2018-12-07 12:25] VITALS: BP 172/66
--- NOTE | 2018-12-07 13:10 | NUR ---
I have reviewed this patient and I concur with the Shift Assessment completed by the Licensed Practical Nurse today this shift.
[2018-12-07 13:19] VITALS: Ht 175.3 cm; Wt 95.3 kg
[2018-12-07] MEDS ORDERED: REGLAN10 MG PO (14:27)
[2018-12-07] MEDS ORDERED: HYDROCODON-ACE1 EA10 PO (14:27)
--- NOTE | 2018-12-07 14:28 | MORECARE ---
CASE MANAGEMENT DISCHARGE SUMMARY PATIENT: TONY RICHEY UNIT: [id number] ADM DATE: 12/06/18 AGE: 78 : 42 SEX: F ROOM/BED: D.2222 AUTHOR: CARLOS DOMINGUEZ PHYSICIAN: REFERRING PHYSICIAN: JHOANA BRISCOE MD DATE OF SERVICE: 12/07/18 Discharge Plan Patient Name: TONY RICHEY Facility: [facility]:[place] : 1940 Planned Disposition: Home Hlth Svc w Plan Readm Anticipated Discharge Date: 12/07/18 Discharge Date: Expected LOS: 1 Initial Reviewer: [email or web address] Initial Review Date: 12/07/2018 Generated: 12/07/18 3:28 pm Coverage Notice Reviewer: [email or web address] - Jadyn Jiménez Notice Issued Date-Time: 12/07/2018 14:14 Notice Type: Medicare Outpatient Observation Notice Notice Delivered To: Patient Relationship to Patient: Self Program Aide Name: Delivery Method: HAND - Hand Delivered Che Days: Prior Verbal Notification: Recipient Understood Notice: Yes Recipient Signature: Yes Med Rec Note Co-signed by Attending: Coverage Notice Comment: PAUL explained, signed, given, copy placed in MR Patient Name: TONY RICHEY Page [id number] at 1428 All edits/amendments must be made on the electronic document DICTATION DATE: 12/07/181427 MAGNET MAKER: DANIEL 12/07/18 1428 RPT#: [id number] DC DATE: STATUS: ADM IN [facility] [address] [place] [address] END OF REPORT
--- NOTE | 2018-12-07 14:38 | MORECARE ---
CASE MANAGEMENT DISCHARGE SUMMARY PATIENT: TONY RICHEY UNIT: [id number] ADM DATE: 12/06/18 AGE: 78 : 42 SEX: F ROOM/BED: D.2222 AUTHOR: CARLOS DOMINGUEZ PHYSICIAN: REFERRING PHYSICIAN: JHOANA BRISCOE MD DATE OF SERVICE: 12/07/18 Discharge Plan Patient Name: TONY RICHEY Facility: [facility]:[place] : 1940 Planned Disposition: Home Hlth Svc w Plan Readm Anticipated Discharge Date: 12/07/18 Discharge Date: Expected LOS: 1 Initial Reviewer: [email or web address] Initial Review Date: 12/07/2018 Generated: 12/07/18 3:37 pm Comments DCP- Discharge Planning Updated by [email or web address]: Jadyn Jiménez on 12/07/18 1:[address] Patient Name: TONY RICHEY Admission Status: Elective Accout number: [id number] Admission Date: 12-06-2018 : 1940 Admission Diagnosis: Attending: JHOANA BRISCOE Current LOS: 1 Anticipated DC Date: 12-07-2018 Planned Disposition: Home Hlth Svc w Plan Readm Primary Insurance: MEDICARE A & B Discharge Planning Comments: CM met with patient to complete initial dc planning assessment. CM educated patient on the CM role and verbal consent given by patient to complete assessment. Patient lives at home with her daughter and daughter's family. At discharge patient plans to return and feels this is a safe discharge. CM discussed availability of home health, rehab services, and medical equipment. Patient denied known discharge needs at this time. CM will continue to follow and will assist as needed with dc plans/needs. Leather Whitener: Jadyn Jiménez DCPIA - Discharge Planning Initial Assessment Updated by [email or web address]: Jadyn Jiménez on 12/07/18 2:29 pm * Is the patient Alert and Oriented? Yes * How many steps to enter\exit or inside your home? 0/0 * PCP Mary Kate Garrido in [facility] * Pharmacy [facility] in [facility] * Preadmission Environment Home with Family * ADLs Independent * Equipment Bedside Commode Cane Shower Chair Walker * List name and contact numbers for known caregivers / representatives who currently or will assist patient after discharge: Jorge Aguilera - DTR - [phone] Starla Richey - sister - [phone] * Verbal permission to speak to the caregivers and representatives has been obtained from the patient. Yes * Community resources currently utilized Home Health * Please name any agencies selected above. [facility] - [phone] * Additional services required to return to the preadmission environment? No * Can the patient safely return to the preadmission environment? Yes * Has this patient been hospitalized within the prior 30 days at any hospital? No Coverage Notice Reviewer: [email or web address] Jose Armando Jiménez Notice Issued Date-Time: 12/07/2018 14:14 Notice Type: Medicare Outpatient Observation Notice Notice Delivered To: Patient Relationship to Patient: Self Palm Gatherer Name: Delivery Method: HAND - Hand Delivered Che Days: Prior Verbal Notification: Recipient Understood Notice: Yes Recipient Signature: Yes Med Rec Note Co-signed by Attending: Coverage Notice Comment: HUMBERTO explained, signed, given, copy placed in MR Last DP export: 12/07/18 1:28 p Patient Name: TONY RICHEY Page [id number] at 1438 All edits/amendments must be made on the electronic document DICTATION DATE: 12/07/181436 AVIONICS ENGINEER: DANIEL 12/07/181436 RPT#: [id number] DC DATE: STATUS: ADM IN [facility] [address] [place] [address] END OF REPORT
--- NOTE | 2018-12-07 15:27 | NUR ---
PT DISCHARGED HOME VIA WHEELCHAIR WITH FAMILY. SCRIPT GIVEN. PT SIGNED PROPER DISCHARGE INSTRUCTION AND REMOVED ALL VALUABLES FROM THE ROOM. PIV REMOVED WITH CATHETER TIP FULLY INTACT.
--- NOTE | 2018-12-10 09:40 | MORECARE ---
CASE MANAGEMENT DISCHARGE SUMMARY PATIENT: TONY RICHEY UNIT: [id number] ADM DATE: 12/06/18 AGE: 78 : 44 SEX: F ROOM/BED: D.2222 AUTHOR: CARLOS DOMINGUEZ PHYSICIAN: REFERRING PHYSICIAN: JHOANA BRISCOE MD DATE OF SERVICE: 12/10/18 Discharge Plan Patient Name: TONY RICHEY Facility: [facility]:[place] : 1940 Planned Disposition: Home Hlth Svc w Plan Readm Anticipated Discharge Date: 12/07/18 Discharge Date: 12/07/2018 Expected LOS: 1 Initial Reviewer: [email or web address] Initial Review Date: 12/07/2018 Generated: 12/10/18 10:40 am Comments DCP- Discharge Planning Updated by [email or web address]: Jadyn Jiménez on 12/07/18 1:[address] Patient Name: TONY RICHEY Admission Status: Elective Accout number: [id number] Admission Date: 12-06-2018 : 1940 Admission Diagnosis: Attending: JHOANA BRISCOE Current LOS: 1 Anticipated DC Date: 12-07-2018 Planned Disposition: Home Hlth Svc w Plan Readm Primary Insurance: MEDICARE A & B Discharge Planning Comments: CM met with patient to complete initial dc planning assessment. CM educated patient on the CM role and verbal consent given by patient to complete assessment. Patient lives at home with her daughter and daughter's family. At discharge patient plans to return and feels this is a safe discharge. CM discussed availability of home health, rehab services, and medical equipment. Patient denied known discharge needs at this time. CM will continue to follow and will assist as needed with dc plans/needs. Deaf/Hard Of Hearing Specialist: Jadyn Jiménez DCPIA - Discharge Planning Initial Assessment Updated by [email or web address]: Jadyn Jiménez on 12/07/18 2:29 pm * Is the patient Alert and Oriented? Yes * How many steps to enter\exit or inside your home? 0/0 * PCP Mary Kate Garrido in [facility] * Pharmacy [facility] in [facility] * Preadmission Environment Home with Family * ADLs Independent * Equipment Bedside Commode Cane Shower Chair Walker * List name and contact numbers for known caregivers / representatives who currently or will assist patient after discharge: Jorge Aguilera - DTR - [phone] Starla Richey - sister - [phone] * Verbal permission to speak to the caregivers and representatives has been obtained from the patient. Yes * Community resources currently utilized Home Health * Please name any agencies selected above. [facility] - [phone] * Additional services required to return to the preadmission environment? No * Can the patient safely return to the preadmission environment? Yes * Has this patient been hospitalized within the prior 30 days at any hospital? No Coverage Notice Reviewer: [email or web address] Jose Armando Jiménez Notice Issued Date-Time: 12/07/2018 14:14 Notice Type: Medicare Outpatient Observation Notice Notice Delivered To: Patient Relationship to Patient: Self Confectionery Maker Name: Delivery Method: HAND - Hand Delivered Che Days: Prior Verbal Notification: Recipient Understood Notice: Yes Recipient Signature: Yes Med Rec Note Co-signed by Attending: Coverage Notice Comment: HUMBERTO explained, signed, given, copy placed in MR Last DP export: 12/07/18 1:38 p Patient Name: TONY RICHEY Page [id number] at 0940 All edits/amendments must be made on the electronic document DICTATION DATE: 12/10/18939 APPLICATIONS ENGINEER MANUFACTURING: DANIEL 12/10/18939 RPT#: [id number] DC DATE:12/07/18 STATUS: DIS IN [facility] [address] [place] [address] END OF REPORT
--- NOTE | 2018-12-14 12:15 | OP ---
PATIENT NAME: TONY RICHEY MEDICAL RECORD: [id number] :44 LOCATION:D.OPS ADMISSION DATE: SURGEON: EVAN BRISCOE MD DATE OF OPERATION: 12/06/2018 PREOPERATIVE DIAGNOSES: 1. Paraesophageal hernia. 2. Ineffective esophageal motility. 3. Hypertension. 4. Thyroid disease. POSTOPERATIVE DIAGNOSES: 1. Paraesophageal hernia. 2. Ineffective esophageal motility. 3. Hypertension. 4. Thyroid disease. PROCEDURE: Laparoscopic paraesophageal hernia repair with Toupet fundoplication. SURGEON: Evan Briscoe MD REPORT OF PROCEDURE: The patient's abdomen was prepped and draped in sterile fashion. A Veress needle was inserted in the left upper quadrant and the abdomen was insufflated. An 11-mm Visiport trocar was then inserted in the midline just above the umbilicus. I could see the Veress needle and there was no sign of any injury to bowel or surrounding structure. An 11-mm trocar was then placed in the left upper quadrant, a 5 mm trocar was placed in the epigastrium, a 5-mm trocar was placed in the left lateral abdomen, and a final 5-mm trocar was placed in the right lateral subcostal region. A liver retractor was inserted and the left lobe of the liver was elevated. At this point, we could see a large hiatal hernia, which contained at least 3/4 of the patient's stomach. As we pulled this down, it would quickly fall back up into the chest cavity when released. We began our dissection on the lesser omentum, which was taken down with Harmonic scalpel. This dissection was continued up to the right side of the right mendel. We scored the peritoneum and then began to remove the hernia sac to its attachments in the chest cavity. Once we got as far into the chest as we could and went as far anteriorly and posteriorly as possible, we went to the short gastrics on the greater curvature of the stomach and began to take these down using Harmonic scalpel. The short gastrics were taken down up to the left side of the right mendel and at this point, we scored the peritoneum and took down the remainder of the hernia sac in the chest cavity. At this point, we had a 360-degree inspection of the patient's esophagus. We dissected out the tissues as far as we could until there was no tethering of the tissues of the esophagus and the stomach would rest comfortably in the abdominal cavity with at least 2-3 cm of esophagus present. We then closed the esophageal hiatus with interrupted 0 Polydeks times 4. Once this was done, we performed a 270-degree posterior wrap of the fundus of the stomach around the distal esophagus and GE junction. This was done using interrupted 0 Polydeks times 6. At the conclusion of the case, we had a decent wrap present. There was no sign of any bleeding. The patient had an OG tube in place and this was removed with ease. We then irrigated out the abdomen thoroughly with normal saline. The 11-mm trocar site fascias were closed with interrupted 0 Vicryls using a James-Lynnette suture passer device. The liver retractor was removed along with the ports and insufflation. The skin incisions were infused with a total OPERATIVE REPORT [id number] TONY RICHEY of 10 mL of 0.25% Marcaine with epinephrine and then closed with subcutaneous 5-0 Monocryl. COMPLICATIONS: None. CONDITION: Stable. ANESTHESIA: General endotracheal and local. BLOOD LOSS: Minimal. TRANSINT:[id number] Voice Confirmation ID: [id number] DOCUMENT ID: [id number] EVAN BRISCOE MD at 1215 CC: [id number] DICTATION DATE: 12/06/18 1025 HORTICULTURAL SERVICES SUPERVISOR: 12/06/18 1045 [facility] 12/07/18 [id number] [place] [address]
== END 2018-12-07 15:31 | disposition home or self-care (01) ==
LOC: OBSVTIME → D.OPS 05:48 → D.PAN 10:15 → D.OPS 10:15 → D.MS 10:30 → D.OPS 13:00 → OBSVTIME 13:01 → D.MS 13:01 → D.OPS 12-07 15:31 → D.MS 12-07 15:31
PROVIDERS: ATTEND Surgery
DX: K44.9 Diaphragmatic hernia without obstruction or gangrene (principal); I10 Essential (primary) hypertension; E03.9 Hypothyroidism, unspecified